=== PATIENT | female | born 1965 | race African-American/Black ===

== ENCOUNTER 2018-12-26 10:37 | Observation (INO) ==
--- NOTE | 2018-12-26 11:12 | EKG Report ---
Test Performed on : 12/26/2018 10:54:44 AM Test Reason : CP Blood Pressure : / mmHG Vent. Rate : 096 BPM Atrial Rate : 096 BPM P-R Int : 138 ms QRS Dur : 084 ms QT Int : 372 ms P-R-T Axes : 053 018 048 degrees QTc Int : 469 ms Normal sinus rhythm. Normal ECG When compared with ECG of 19-DEC-2015 11:22, Nonspecific T wave abnormality no longer evident in Anterior leads Unconfirmed Result
[2018-12-26 11:19] LABS: BASO# 0.02 X1000 (0.0-0.2); BASO% 0.3 % (0.0-0.8); HEMATOCRIT 39.9 % (37.0-47.0); HEMOGLOBIN 13.1 g/dL (12.0-16.0); LYMPH# 2.49 X1000 (1.2-3.4); LYMPH% 37.3 % (20.5-51.1); MCH 28.5 PG (27-31); MCHC 32.8 g/dL (33-37); MCV 86.9 FL (81-99); MONO# 0.37 X1000 (0.11-0.59); MONO% 5.5 % (1.7-9.3); NEUT% 53.9 % (42.2-75.2); PLT 240 X1000 (130-400); RBC 4.59 XMIL (4.2-5.4); RDW 12.6 % (11.5-14.5); WBC 6.68 X1000 (4.8-10.8)
[2018-12-26 11:20] LABS: URINE SOURCE CLEAN CATCH
[2018-12-26] MEDS ORDERED: NITROGLYCERIN SL ONE (11:25)
[2018-12-26] MEDS ORDERED: TYLENOL PO ONE (11:25)
[2018-12-26] MEDS ORDERED: ZOFRAN IV ONE (11:25)
[2018-12-26] MEDS ORDERED: NITROGLYCERIN TOP ONE (11:25)
[2018-12-26 11:27] LABS: INR 0.86; PROTIME 12.4 Seconds (11.0-16.0)
[2018-12-26] MEDS ORDERED: PRINIVIL PO ONE (11:27)
[2018-12-26 11:29] LABS: PTT 27.4 Seconds (22.3-41.8)
--- NOTE | 2018-12-26 11:29 | Diag Imaging Result Doc PS360 ---
CHEST-PORTABLE - 12/26/2018 INDICATION: CP COMPARISON: 10/15/2018 FINDINGS: The lungs are normally expanded and clear. Heart size and mediastinal contours are normal. No pneumothorax or pleural effusion. IMPRESSION: Negative exam. Electronically signed by Chay Amaya 12/26/2018 11:27 AM
[2018-12-26 11:43] LABS: BILIRUBIN URINE NEGATIVE (NEGATIVE); BLOOD URINE NEGATIVE (NEGATIVE); COLOR YELLOW; GLUCOSE URINE >1000 mg/dL (NEGATIVE); KETONE URINE 10 mg/dL (NEGATIVE); LEUKOCYTES URINE NEGATIVE (NEGATIVE); NITRITE URINE NEGATIVE (NEGATIVE); PH URINE 5.5; PROTEIN URINE TRACE mg/dL (NEGATIVE); SP GRAVITY URINE 1.031; TURBIDITY URINE CLEAR (CLEAR); UROBILINOGEN URINE NORMAL (NORMAL)
[2018-12-26 11:50] LABS: UR EPITHELIAL CELLS <10 /HPF (<10); URINE BACTERIA 1+ /HPF; URINE RBC <10 /HPF (<10); URINE WBC <10 /HPF (<10)
[2018-12-26 11:53] LABS: AGAP 13; ALB/GLOB RATIO 1.4; ALBUMIN 4.1 g/dL (3.5-5.0); ALKALINE PHOSPHATASE 81 U/L (32-104); BUN 11 mg/dL (8-22); CALCIUM 9.4 mg/dL (8.8-10.2); CHLORIDE 98 mmol/L (98-107); CK PROFILE 99 U/L (24-173); COSMO 287; CREATININE 0.7 mg/dL (0.5-0.9); ESTIMATED GFR > 60; GLUCOSE 353 mg/dL (70-104); GOT 19 U/L (10-30); GPT 22 U/L (10-36); POTASSIUM 4.1 mmol/L (3.5-5.1); SODIUM 137 mmol/L (136-145); TCO2 26 mmol/L (25-35); TOTAL BILIRUBIN 0.42 mg/dL (0.20-1.00); TOTAL PROTEIN 7.1 g/dL (6.3-8.3)
--- NOTE | 2018-12-26 13:07 | PROVIDER DOCUMENTATION ---
This chart was entered by Batsheva Hernández Scribe, acting as scribe for Aureliano Kenny MD. HPI-Chest Pain - General Chief Complaint: High Blood Sugar Stated Complaint: CP/PT STATES HIGH BLOOD SUGAR Time Seen by Provider: 12/26/18 10:55 Source: patient Allergies/Adverse Reactions: Patient Allergies Allergy/AdvReac Type Severity Reaction Status Date / Time Penicillins Allergy Intermediate RASH Verified 10/29/17 10:18 Home Medications: Home Medication List Medication Instructions Recorded Confirmed Last Taken Type Metformin [Glucophage] 1,000 mg PO BID 12/19/15 10/15/18 12/23/16 13:30 History Cholecalciferol (Vit D3) [Vitamin 1,000 unit PO DAILY 03/13/16 10/15/18 12/23/16 13:30 History D] Diltiazem [Cardizem] 120 mg PO BID 03/13/16 10/15/18 12/23/16 13:30 History Estradiol 1 mg PO DAILY 03/13/16 10/15/18 12/23/16 13:30 History Glipizide 10 mg PO DAILY 03/13/16 10/15/18 12/23/16 13:30 History Meloxicam [Mobic] 7.5 mg PO DAILY PRN PRN #15 tablet 03/13/16 01/01/17 12/23/16 13:30 Rx SIMVAstatin [Zocor] 20 mg PO QHS 03/13/16 10/15/18 12/30/16 20:00 History Hydrochlorothiazide 25 mg PO DAILY 01/01/17 10/15/18 12/30/16 13:30 History Methocarbamol 500 mg PO Q8HR 01/01/17 10/15/18 12/31/16 00:00 History Omeprazole 20 mg PO DAILY 01/01/17 10/15/18 12/30/16 13:30 History Clonidine HCl 0.1 mg PO TID PRN #60 tablet 10/29/17 10/15/18 Unknown Rx Benzonatate [Tessalon Perle] 100 mg PO TID #30 cap 10/15/18 Unknown Rx Prednisone 50 mg PO DAILY #5 tab 10/15/18 Unknown Rx - History of Present Illness-CP Nature of Presenting Problem: Patient is a 53 year old female who presents with left side chest pain that has been present for 3 days intermittently. Patient also states having elevated blood sugar checks recently. Reports blood sugar checks ranging from 200 to 500. States she has been taking her Metformin. Does not report shortness of breath or vomiting. Denies taking nitro due to the medication giving her nausea. Location: reports: other (left side) Chest Pain Radiation: reports: no radiation Quality of Pain: reports: aching Severity in ED: mild Onset/Duration: 3 days ago Timing: still present, intermittent Context/Activities at Onset: reports: light activity Modifying Factors: improves with: nothing Associated Symptoms: reports: denies symptoms Nitro Today/Relief: no nitro taken today Aspirin Treatment Today: no aspirin today Similar Symptoms Previously?: Yes (present for 3 days) Recently Seen Here or By Another Healthcare Provider: No Review of Systems - Adult - REVIEW OF SYSTEMS - ADULT Constitutional: reports: no symptoms reported. denies: chills, fever, fatique Eyes: reports: no symptoms reported Ears, Nose, Mouth & Throat: reports: no symptoms reported Cardiovascular: reports: see HPI, chest pain. denies: heart murmur, palpitations Respiratory: reports: no symptoms reported. denies: cough, shortness of breath, wheezing Gastrointestinal: reports: no symptoms reported Genitourinary: reports: no symptoms reported Musculoskeletal: reports: no symptoms reported Integumentary: reports: no symptoms reported Neurological: reports: no symptoms reported Psychiatric: reports: no symptoms reported Endocrine: reports: no symptoms reported Hematologic/Lymphatic: reports: no symptoms reported Allergic/Immunologic: reports: no symptoms reported All Other Systems: Reviewed and Negative Past History - Adult - PAST MEDICAL HISTORY-ADULT Review of Records: reports: Old Records Reviewed, Nursing Assessment Review, Medications Reviewed, Social history reviewed & non-contributory. Major Childhood Illnesses: reports: denies history Cardiovascular: reports: HTN, hyperlipidemia Respiratory: reports: denies history Gastrointestinal: reports: GERD, ulcer Obstetrical/Gynecological: reports: denies history Genitourinary: reports: denies history Musculoskeletal: reports: chronic pain, neck/back injury, orthopedic injury Neurological: reports: denies history Psychiatric: reports: denies history Endocrine/Immune: reports: Diabetes Other Conditions: reports: denies history - PRIOR SURGERIES/PROCEDURES Surgical/Procedure History: reports: reviewed, not pertinent - PRIOR HOSPITALIZATIONS Prior Hospitalizations: reports: none - IMMUNIZATION STATUS Childhood Immunizations: See Nurse Assessment Flu Vaccine: See Nurse Assessment - FAMILY HISTORY Family History: diabetes - SOCIAL HISTORY Smoking: denies Substance Use: denies Physical Exam-General - PHYSICAL EXAM-ADULT Initial Vital Signs Reviewed: Yes - CONSTITUTIONAL General Appearance: alert, no apparent distress. negative: lethargic, slow to respond - RESPIRATORY Respiratory: chest non-tender, lungs clear, normal breath sounds. negative: cr ackles, wheezing - CARDIOVASCULAR Cardiovascular: normal peripheral pulses, regular rate, rhythm. negative: tachycardia, systolic murmur - GASTROINTESTINAL (ABDOMEN) Abdominal Exam: normal bowel sounds, non tender, soft. negative: guarding, rebo und - MUSCULOSKELETAL Extremity: non-tender, normal inspection. negative: deformity, erythema - SKIN Integumentary: normal color, normal turgor, warm/dry. negative: cyanosis, ecchymosis, erythema, rash - NEUROLOGIC Neurologic: grossly normal. negative: aphasia, facial droop - PSYCHIATRIC Psych/Mental Status: normal mood/affect, oriented x 3. negative: anxious Progress - PLAN OF CARE/RESULTS Progress/Plan/Lab Results: Vital Signs - 8 hr 12/26/18 10:40 Temperature 98.0 F Pulse Rate 101 H Respiratory Rate 17 Blood Pressure 164/109 O2 Sat by Pulse Oximetry 95 Laboratory Results - last 24 hr 12/26/18 12/26/18 12/26/18 10:45 11:00 11:00 WBC RBC Hgb Hct MCV MCH MCHC RDW Std Deviation Plt Count MPV Neut % (Auto) Lymph % (Auto) [place] % (Auto) Eos % (Auto) Baso % (Auto) Neut # (Auto) Lymph # (Auto) [place] # (Auto) Eos # (Auto) Baso # (Auto) PT INR PTT (Actin FS) D-Dimer, Quantitative < 0.27 Sodium Potassium Chloride Carbon Dioxide Anion Gap BUN Creatinine Estimated GFR/1.73 m2 BUN/Creatinine Ratio Glucose POC Glucose 346 H D Calculated Osmolality Calcium Magnesium 1.7 Total Bilirubin AST ALT Alkaline Phosphatase Creatine Kinase Troponin T Pfr-S-Ttxohxupxzg Pept Total Protein Albumin Globulin Albumin/Globulin Ratio Free T4 Urine Source Urine Color Urine Turbidity Urine pH Ur Specific Pep Urine Protein Ur Glucose (Stick) Ur Ketones (Stick) Urine Blood Urine Nitrite Urine Bilirubin Urobilinogen Dipstick Urine Leukocytes Urine WBC (Auto) Urine RBC (Auto) U Epithel Cells (Auto) Urine Bacteria (Auto) 12/26/18 12/26/18 12/26/18 11:00 11:00 11:00 WBC 6.68 RBC 4.59 Hgb 13.1 Hct 39.9 MCV 86.9 MCH 28.5 MCHC 32.8 L RDW Std Deviation 12.6 Plt Count 240 MPV 11.0 H Neut % (Auto) 53.9 Lymph % (Auto) 37.3 [place] % (Auto) 5.5 Eos % (Auto) 3.0 Baso % (Auto) 0.3 Neut # (Auto) 3.60 Lymph # (Auto) 2.49 [place] # (Auto) 0.37 Eos # (Auto) 0.20 Baso # (Auto) 0.02 PT INR PTT (Actin FS) D-Dimer, Quantitative Sodium 137 Potassium 4.1 Chloride 98 Carbon Dioxide 26 Anion Gap 13 BUN 11 Creatinine 0.7 Estimated GFR/1.73 m2 > 60 BUN/Creatinine Ratio 16 Glucose 353 H POC Glucose Calculated Osmolality 287 Calcium 9.4 Magnesium Total Bilirubin 0.42 AST 19 ALT 22 Alkaline Phosphatase 81 Creatine Kinase 99 Troponin T < 0.010 Kif-G-Trvgyrjxqwl Pept Total Protein 7.1 Albumin 4.1 Globulin 3.0 Albumin/Globulin Ratio 1.4 Free T4 Urine Source Urine Color Urine Turbidity Urine pH Ur Specific Pep Urine Protein Ur Glucose (Stick) Ur Ketones (Stick) Urine Blood Urine Nitrite Urine Bilirubin Urobilinogen Dipstick Urine Leukocytes Urine WBC (Auto) Urine RBC (Auto) U Epithel Cells (Auto) Urine Bacteria (Auto) 12/26/18 12/26/18 12/26/18 11:00 11:00 11:00 WBC RBC Hgb Hct MCV MCH MCHC RDW Std Deviation Plt Count MPV Neut % (Auto) Lymph % (Auto) [place] % (Auto) Eos % (Auto) Baso % (Auto) Neut # (Auto) Lymph # (Auto) [place] # (Auto) Eos # (Auto) Baso # (Auto) PT 12.4 INR 0.86 PTT (Actin FS) 27.4 D-Dimer, Quantitative Sodium Potassium Chloride Carbon Dioxide Anion Gap BUN Creatinine Estimated GFR/1.73 m2 BUN/Creatinine Ratio Glucose POC Glucose Calculated Osmolality Calcium Magnesium Total Bilirubin AST ALT Alkaline Phosphatase Creatine Kinase Troponin T Fdi-Q-Ecrrxagiryd Pept 10 Total Protein Albumin Globulin Albumin/Globulin Ratio Free T4 1.01 Urine Source Urine Color Urine Turbidity Urine pH Ur Specific Pep Urine Protein Ur Glucose (Stick) Ur Ketones (Stick) Urine Blood Urine Nitrite Urine Bilirubin Urobilinogen Dipstick Urine Leukocytes Urine WBC (Auto) Urine RBC (Auto) U Epithel Cells (Auto) Urine Bacteria (Auto) 12/26/18 11:19 WBC RBC Hgb Hct MCV MCH MCHC RDW Std Deviation Plt Count MPV Neut % (Auto) Lymph % (Auto) [place] % (Auto) Eos % (Auto) Baso % (Auto) Neut # (Auto) Lymph # (Auto) [place] # (Auto) Eos # (Auto) Baso # (Auto) PT INR PTT (Actin FS) D-Dimer, Quantitative Sodium Potassium Chloride Carbon Dioxide Anion Gap BUN Creatinine Estimated GFR/1.73 m2 BUN/Creatinine Ratio Glucose POC Glucose Calculated Osmolality Calcium Magnesium Total Bilirubin AST ALT Alkaline Phosphatase Creatine Kinase Troponin T Opm-A-Wxvbviumxdc Pept Total Protein Albumin Globulin Albumin/Globulin Ratio Free T4 Urine Source CLEAN CATCH Urine Color YELLOW Urine Turbidity CLEAR Urine pH 5.5 Ur Specific Pep 1.031 Urine Protein TRACE A Ur Glucose (Stick) >1000 A Ur Ketones (Stick) 10 A Urine Blood NEGATIVE Urine Nitrite NEGATIVE Urine Bilirubin NEGATIVE Urobilinogen Dipstick NORMAL Urine Leukocytes NEGATIVE Urine WBC (Auto) <10 Urine RBC (Auto) <10 U Epithel Cells (Auto) <10 Urine Bacteria (Auto) 1+ Orders Category Date Time Status Cardiac Monitoring DIRECTED Care 12/26/18 11:03 Active Saline Loc NOW Care 12/26/18 11:03 Active CHEST-PORTABLE [RAD] Stat Exams 12/26/18 11:05 Completed CBC WITH ELECTRONIC DIFF [HEME] Stat Lab 12/26/18 11:00 Completed CK PROFILE [SP CHEM] Stat Lab 12/26/18 11:00 Completed COMPREHENSIVE METABOLIC PANEL [CHEM] Stat Lab 12/26/18 11:00 Completed D-DIMER [COAG] Stat Lab 12/26/18 11:00 Completed FREE T4 Stat Lab 12/26/18 11:00 Completed MAGNESIUM [CHEM] Stat Lab 12/26/18 11:00 Completed PRO B-NATRIURETIC PEPTIDE Stat Lab 12/26/18 11:00 Completed PROTIME WITH INR [COAG] Stat Lab 12/26/18 11:00 Completed PTT [COAG] Stat Lab 12/26/18 11:00 Completed TROPONIN T Stat Lab 12/26/18 11:00 Completed URINALYSIS W/POSS RFLX CULT [URINALYSIS] Stat Lab 12/26/18 11:19 Completed Acetaminophen [Tylenol] Med 12/26/18 11:25 Discontinued 1,000 mg PO NOW ONE LISINOpril [Prinivil] Med 12/26/18 11:27 Discontinued 20 mg PO NOW ONE Nitroglycerin Med 12/26/18 11:25 Discontinued 1 inch TOP NOW ONE Nitroglycerin Sl [Nitroglycerin] Med 12/26/18 11:25 Discontinued 0.4 mg SL NOW ONE Ondansetron [Zofran] Med 12/26/18 11:25 Discontinued 4 mg IV NOW ONE EKG [EKG] Stat Ther 12/26/18 11:04 Draft Result Diagrams: 12/26/18 11:00 12/26/18 11:00 - EKG 1 Time of EKG reading by physician:: 10:54 EKG Read and Signed by:: Aureliano Kenny EKG Interpretation (*Must complete 3 of following elements*): Normal Rate: 96 Rhythm: normal sinus rhythm Campbell: normal QRS: normal GA Interval: normal ST Wave: normal Comments: normal ECG - XRAY 1 XRAY Study: Chest Impression: See EMR Report (CHEST-PORTABLE - 12/26/2018 INDICATION: CP COMPARISON: 10/15/2018 FINDINGS: The lungs are normally expanded and clear. Heart size and mediastinal contours are normal. No pneumothorax or pleural effusion. IMPRESSION: Negative exam. Electronically signed by Chay Amaya 12/26/2018 11:27 AM 12/26/18 1127 Interpreting Physician: Chay Amaya MD Dictated Date/Time: 12/26/18 1126 cc: Aureliano Kenny MD; None,PCP) - CONSULTS/PCP/HOSPITALIST Notification #1 *Consult/PCP/Hospitalist*: Leslie for Dr Reardon Time Discussed: 13:05 Consult Disposition: Admit Departure - Departure Date of Disposition Decision: 12/26/18 Time of Disposition Decision: 13:06 DIAGNOSIS: Chest pain, Hypertension, Hyperglycemia due to type 2 diabetes mellitus Disposition: ADMITTED INPATIENT 09 Certified Medical Emergency: Emergent Condition: Stable Referrals and Follow-Ups: None,PCP [Primary Care Provider] - - Critical Care Note This patient required my direct & personal management of CC.: No Attestation - Physician/ MARSHALL Attestation The physician spent face to face time with patient:: Yes Advanced Practice Provider documentation review:: Supervising physician onsite and consulted in the evaluation and care of this patient. The physician did have a face to face encounter with the patient. This chart was documented by the indicated scribe, (Batsheva Hernández Scribe) and accurately reflects the services I performed and decisions made by me, Aureliano Kenny MD, as attested by the provider's signature.
[2018-12-26] MEDS ORDERED: ZOFRAN IV PRN (14:42)
[2018-12-26] MEDS ORDERED: CATAPRES PO PRN (14:46)
[2018-12-26] MEDS ORDERED: MOBIC PO PRN (14:46)
[2018-12-26 16:06] LABS: AGAP 9; BUN 10 mg/dL (8-22); CALCIUM 9.3 mg/dL (8.8-10.2); CHLORIDE 99 mmol/L (98-107); COSMO 281; CREATININE 0.7 mg/dL (0.5-0.9); ESTIMATED GFR > 60; GLUCOSE 247 mg/dL (70-104); MAGNESIUM 1.7 mg/dL (1.5-2.7); POTASSIUM 3.9 mmol/L (3.5-5.1); SODIUM 137 mmol/L (136-145); TCO2 29 mmol/L (25-35)
[2018-12-26] MEDS: HUMULIN R SUBQ SCH ×2 (16:17→21:15)
[2018-12-26] MEDS: GLUCOPHAGE PO SCH (16:17)
--- NOTE | 2018-12-26 18:47 | HISTORY AND PHYSICAL ---
[employer]: NEFTALY Kramer. CHIEF COMPLAINT: Chest pain. HISTORY OF PRESENT ILLNESS: Mrs. Best is a 53-year-old female who states that she started having elevated blood sugars about a week ago greater than 400 and the patient states that she was driving to [place] today from where she lives in [place] and started having some mid to the left chest wall pain that is a little sharp that comes and goes and sometimes feels like a burning. The patient was having the pain when I was in the room and that it sometimes came and went. Seemed to be more over the heart area below the shoulder. The patient denies any nausea with this pain. Denies any headache. Denies any dizziness. The patient states that sometimes it is hard to swallow and sometimes that pills do get stuck when she is trying to swallow. Denies any vomiting. The patient states that she is a diabetic and does have hypertension and arthritis. The patient states that she does have arthritis in her left shoulder and was in the ER about a month ago for arthritis pain in the left shoulder. The patient is denying any other problems at the present time. The patient is not short of breath at the present time. She is not having any shoulder pain at the present time. Heart rate is 80s and 90s, normal sinus rhythm. Blood pressure is stable. The patient is in no acute distress at the present. Troponin level in the ER is less than 0.01. Creatine kinase is 99. EKG in the ER shows normal sinus rhythm with a heart rate about 96. Blood sugar in the ER is 346. PAST MEDICAL HISTORY: Diabetes, hypertension, arthritis. PAST SURGICAL HISTORY: Partial hysterectomy, carpal tunnel surgery to the right hand. FAMILY HISTORY: Father and brothers have diabetes. SOCIAL HISTORY: The patient lives in [place]. She is disabled. She denies any alcohol, drug, or tobacco use. ALLERGIES: Penicillin. MEDICATIONS: Omeprazole 20 mg p.o. daily, vitamin D 3000 mg p.o. daily, clonidine 0.1 mg p.o. t.i.d., diltiazem 120 mg p.o. b.i.d., estradiol 1 mg p.o. daily, meloxicam 7.5 mg p.o. daily, metformin 500 mg p.o. b.i.d., Simvastatin 40 mg p.o. at bedtime. LABS AND DIAGNOSTICS: White blood cell count 6.68, hemoglobin 13.1, hematocrit 39.9, platelet count 240,000. PT 12.4, INR 0.86, PTT 27.4. D-dimer 0.27. Sodium 137, potassium 3.9, carbon dioxide 99, BUN 10, creatinine 0.7, GFR greater than 60. Glucose 247, point of care glucose is 346, calcium 9.3, magnesium is 1.7. Total bilirubin is 0.42, AST is 19, ALT is 22, alkaline phosphatase is 81. Creatine kinase is 99. Troponin is 0.01. ProBNP is 10. Urinalysis is greater than a 1000 glucose in urine, ketones are 10. Chest x-ray is negative. REVIEW OF SYSTEMS: A 12 point review of system was performed and are negative except for what is stated above in HPI. PHYSICAL EXAM: VITAL SIGNS: Temperature 97.7 degrees, pulse rate 88, respiratory rate 18, blood pressure 125/68, O2 saturation 96% on room air, weight 191, height 5 feet 2 inches. GENERAL: This is a well-nourished, well-developed female in no acute distress, lying in the ER stretcher. HEENT: Atraumatic, normocephalic. Pupils equal, round, reactive to light. Mucous membranes are moist. No dentition noted. NECK: Supple. No lymphadenopathy. Trachea midline. No JVD. CV: No murmurs, gallops, or rubs. Regular rate and rhythm. RESPIRATORY: Lung sounds clear. Equal chest excursion. Respirations nonlabored. No accessory muscle usage. GI: Abdomen is soft, nontender, nondistended. Bowel sounds are present x4. NEURO: Awake, alert, oriented x4. Cranial nerves intact. Follows all commands. MUSCULOSKELETAL: Full distal strength noted. No deformities or abnormalities noted. EXTREMITIES: No clubbing, no cyanosis, no edema. DP and PT pulses are present. SKIN: Warm, dry, and intact. No rashes, bruises noted. ASSESSMENT: 1. Chest pain, rule out acute coronary syndrome/unstable angina. 2. Gastroesophageal reflux disease. 3. Diabetes. 4. Hypertension. PLAN: We will admit this patient to the medical floor. We will follow up with serial CK and troponins. Repeat chest x-ray and labs in the morning. We will reorder this patient's home medications and start the patient on healthy heart diet and place this patient on clinical research monitor. Dictated by NEFTALY Ugarte for Terry Reardon MD MTDD
[2018-12-26] MEDS ORDERED: ZOCOR PO SCH (21:00)
[2018-12-26] MEDS: CARDIZEM PO SCH (21:14)
[2018-12-26] MEDS: TYLENOL PO PRN (21:15)
[2018-12-27] MEDS: HUMULIN R SUBQ SCH ×2 (06:24→11:04)
[2018-12-27] MEDS: TYLENOL PO PRN (06:30)
[2018-12-27] MEDS ORDERED: PRILOSEC PO SCH ×2 (07:00)
--- NOTE | 2018-12-27 07:13 | EKG Report ---
Test Performed on : 12/27/2018 07:05:55 AM Test Reason : chest pain Blood Pressure : / mmHG Vent. Rate : 072 BPM Atrial Rate : 072 BPM P-R Int : 172 ms QRS Dur : 078 ms QT Int : 412 ms P-R-T Axes : 061 045 058 degrees QTc Int : 451 ms Normal sinus rhythm. Normal ECG When compared with ECG of 26-DEC-2018 10:54, (Unconfirmed) No significant change was found Confirmed by Umer HINOJOSA, Erlin Bernal ([id number]) on 12/27/2018 1:42:07 PM
--- NOTE | 2018-12-27 07:20 | Diag Imaging Result Doc PS360 ---
EXAM: CHEST-PORTABLE HISTORY: Chest Pain TECHNIQUE: Portable chest single view COMPARISON: 12/26/2018 FINDINGS: The lungs are well expanded. The heart is not enlarged. The vessels are not distended. There are no infiltrates. No effusion identified. IMPRESSION: Negative exam. Electronically signed by Stu Blas 12/27/2018 7:18 AM
[2018-12-27 07:32] LABS: BASO# 0.01 X1000 (0.0-0.2); BASO% 0.2 % (0.0-0.8); EOS# 0.23 X1000 (0.0-0.7); EOS% 4.1 % (0.0-10.0); HEMATOCRIT 40.8 % (37.0-47.0); HEMOGLOBIN 13.2 g/dL (12.0-16.0); LYMPH# 2.62 X1000 (1.2-3.4); LYMPH% 46.2 % (20.5-51.1); MCH 28.1 PG (27-31); MCHC 32.4 g/dL (33-37); MCV 86.8 FL (81-99); MONO# 0.38 X1000 (0.11-0.59); MONO% 6.7 % (1.7-9.3); NEUT# 2.43 X1000 (1.4-6.5); NEUT% 42.8 % (42.2-75.2); PLT 219 X1000 (130-400); RDW 12.6 % (11.5-14.5); WBC 5.67 X1000 (4.8-10.8)
[2018-12-27 07:55] LABS: AGAP 13; BUN 9 mg/dL (8-22); CHLORIDE 101 mmol/L (98-107); COSMO 282; CREATININE 0.6 mg/dL (0.5-0.9); ESTIMATED GFR > 60; GLUCOSE 231 mg/dL (70-104); SODIUM 138 mmol/L (136-145); TCO2 24 mmol/L (25-35)
[2018-12-27 07:58] LABS: CHOLESTEROL 108 mg/dL (0-200); CK PROFILE 62 U/L (24-173); HDL 38 mg/dL (45-65); LDL 28 mg/dL; TRIGLYCERIDES 211 mg/dL (35-135); VLDL 42 mg/dL
[2018-12-27] MEDS ORDERED: ASPIRIN PO SCH (09:00)
[2018-12-27] MEDS: GLUCOPHAGE PO SCH (09:00)
[2018-12-27] MEDS ORDERED: VITAMIN D PO SCH (09:00)
[2018-12-27] MEDS ORDERED: ESTRACE PO SCH (09:00)
[2018-12-27] MEDS: CARDIZEM PO SCH (09:00)
[2018-12-27 09:08] VITALS: BP 124/79
--- NOTE | 2018-12-28 07:57 | DISCHARGE SUMMARY ---
ADMISSION DATE: 12/26/2018 DISCHARGE DATE: 12/27/2018 PRIMARY CARE PHYSICIAN: NEFTALY Kramer. ADMISSION DIAGNOSES: 1. Chest pain, rule out acute coronary syndrome and unstable angina. 2. Gastroesophageal reflux disease. 3. Diabetes. 4. Hypertension. DISCHARGE DIAGNOSES: 1. Chest pain. Ruled out for acute coronary syndrome. 2. Gastroesophageal reflux disease. 3. Diabetes. 4. Hypertension. SUMMARY OF FINDINGS: This is a 53-year-old female who presented stating that she had elevated blood sugars about a week ago that were greater than 400. When she was driving to [place] from [place], she started having some mid to left chest wall pain that was a little sharp and was intermittent and felt like burning. The patient was having the pain in the emergency room, states that seemed to be more over the heart area and below the shoulder. Denied any nausea, headache, dizziness. She was admitted. She had 3 sets of cardiac enzymes that were all negative. She was noted to have a hemoglobin A1c of 11. Her blood sugar on arrival was 346. This morning it is 231 but it is now felt that she can safely be discharged home. DISCHARGE MEDICATIONS: Include: 1. Vitamin D3, 1000 units p.o. daily. 2. Clonidine 0.1 mg p.o. t.i.d. p.r.n. 3. Cardizem 120 mg p.o. b.i.d. 4. Estradiol 1 mg p.o. daily. 5. Mobic 7.5 mg p.o. daily p.r.n. 6. Metformin 1000 mg p.o. b.i.d. 7. Zocor 20 mg p.o. at bedtime. 8. Trulicity 0.75 mg subcutaneous as directed. 9. Prilosec 40 mg p.o. daily. 10. Actos 30 mg p.o. daily. 11. Prednisone 50 mg p.o. daily. FOLLOWUP: She will follow up with her primary care physician in the next 1 to 2 weeks and call the office for an appointment. TIME SPENT: This a 33 minute discharge. Dictated by NEFTALY Ron for Terry Reardon MD cc: NEFTALY Ron Rivera
== END 2018-12-27 12:33 | disposition home or self-care (01) ==
LOC: 3N 10:37 → ED 10:37
PROVIDERS: ATTEND Internal Medicine
CPT/HCPCS: 71010; 71045; 80048; 80053; 80061; 81001; 82550; 82948; 83036; 83735; 83880; 84439; 84484; 85025; 85379; 85610; 85730; 93005; 93010; A9270; J2405; XXXXX